=== PATIENT | female | born 1935 | race Caucasian/White ===

== ENCOUNTER → 2017-03-22 | Outpatient (CLI) | payer MEDICARE ==
[~2017-03-22] MED LIST: ASPIRIN CHEWABL81 MG PO; CALCIUM600 MG PO; COQ-10100 MG PO; FLAXSEED PO; MAGNESIUM100 MG PO; METOPROLOL SUCC25 MG PO; MILK THISTLE140 MG PO; MULTIVITAMINS1 EAC1 PO; NORCO 5-325 TA1 EACH PO; PLENDIL 5 MG TAB5 MG PO; TUMERIC PO; [UNRECOGNIZED DRUG - OTHER] PO
== END ==
LOC: KOH-I 15:30
DX: S42.291A Other displaced fracture of upper end of right humerus, initial encounter for closed fracture (principal)
CPT/HCPCS: 73200

== ENCOUNTER 2017-04-02 09:16 | Day surgery (SDC) | payer MEDICARE ==
[~2017-04-02] VITALS: Ht 162.6 cm; Wt 95.3 kg
[2017-04-02 10:09] LABS: HEMOGLOBIN 13.9 gm/dl (12.3-15.3); RED BLOOD COUNT 4.56 M/UL (4.00-5.10); WHITE BLOOD COUNT 5.1 K/UL (4.5-11.0)
[2017-04-02] MEDS ORDERED: METOPROLOL SUCC25 MG PO (10:42)
[2017-04-02] MEDS ORDERED: ASPIRIN CHEWABL81 MG PO (10:43)
[2017-04-02] MEDS ORDERED: PLENDIL 5 MG TAB5 MG PO (10:43)
[2017-04-02] MEDS ORDERED: MAGNESIUM100 MG PO (10:44)
[2017-04-02] MEDS ORDERED: COQ-10100 MG PO (10:44)
[2017-04-02] MEDS ORDERED: MULTIVITAMINS1 EAC1 PO (10:44)
[2017-04-02] MEDS ORDERED: TUMERIC PO (10:45)
[2017-04-02] MEDS ORDERED: CALCIUM600 MG PO (10:46)
[2017-04-02] MEDS ORDERED: FLAXSEED PO (10:46)
[2017-04-02] MEDS ORDERED: [UNRECOGNIZED DRUG - OTHER] PO (10:48)
[2017-04-02] MEDS ORDERED: MILK THISTLE140 MG PO (10:48)
[2017-04-03 05:37] LABS: HEMOGLOBIN 11.7 gm/dl (12.3-15.3); RED BLOOD COUNT 3.91 M/UL (4.00-5.10); WHITE BLOOD COUNT 5.2 K/UL (4.5-11.0)
[2017-04-03] MEDS ORDERED: NORCO 5-325 TA1 EACH PO (11:37)
== END 2017-04-03 12:43 | disposition home or self-care (01) ==
LOC: OR 09:16 → M/S 19:22 → OR 04-03 12:43
PROVIDERS: Orthopaedic Surgery
PROC: 0QS604Z Reposition Right Upper Femur with Internal Fixation Device, Open Approach (ICD-10-PCS; principal; 2017-04-02 12:45)
DX: S72.051A Unspecified fracture of head of right femur, initial encounter for closed fracture (principal); I10 Essential (primary) hypertension; E78.5 Hyperlipidemia, unspecified; M19.90 Unspecified osteoarthritis, unspecified site; M81.0 Age-related osteoporosis without current pathological fracture; I25.10 Atherosclerotic heart disease of native coronary artery without angina pectoris; Z90.49 Acquired absence of other specified parts of digestive tract; Z98.41 Cataract extraction status, right eye; Z98.42 Cataract extraction status, left eye; Z90.13 Acquired absence of bilateral breasts and nipples; Z88.8 Allergy status to other drugs, medicaments and biological substances; Z79.899 Other long term (current) drug therapy; X58.XXXA Exposure to other specified factors, initial encounter
CPT/HCPCS: 36415; 73060; 76000; 80048; 85025; 85027; 93005; 97535; C1713; J0690; J1100; J1200; J2250; J2270; J2405; J2710; J2795; J3010; J7120